=== PATIENT | female | born 1980 | race Caucasian/White ===

== ENCOUNTER 2017-01-09 01:37 | Emergency (ER) | payer BC ==
[~2017-01-09] VITALS: Ht 170.2 cm; Wt 97.5 kg
[~2017-01-09 01:37] MED LIST: ESCT10T
[2017-01-09] MEDS ORDERED: ONDANSETRON 4 MG/2 ML (SDV) Z0FRAN IVP ONE (02:00)
[2017-01-09] MEDS ORDERED: NS IV 1000 ML 1,000 ML IV ONE (02:00)
[2017-01-09] MEDS ORDERED: KETOROLAC 30 MG/ML VIAL IVP STA (02:00)
[2017-01-09] MEDS ORDERED: FAMOTIDINE 20MG/2ML IV (PEPCID) IV STA (02:00)
[2017-01-09 02:27] LABS: BILIRUBIN,URINE NEGATIVE (NEGATIVE); KETONES,URINE 2+ (NEGATIVE); LEUKOCYTE ESTERASE ,URINE 3+ (NEGATIVE); NITRITE,URINE POSITIVE (NEGATIVE); PH,URINE 5 (5-9); PROTEIN,URINE 2+ (NEGATIVE); UROBILINOGEN,URINE 1 MG/DL (NORMAL)
[2017-01-09] MEDS ORDERED: diphenhydrAMINE 50 MG/ML INJ (BENADRYL) IV STA (02:31)
[2017-01-09] MEDS ORDERED: PROMETHAZINE INJ 25 MG/ML (PHENERGAN) AMP IVP STA (02:31)
--- NOTE | 2017-01-09 02:40 | ED General ---
General Chief Complaint: Abdominal/GI Problems Stated Complaint: NAUSEA,VOMITING,PRINCE Nursing Triage Note: Pt c/o nausea, diarrhea, and dry heaving since Thursday (01/06). Pt also c/o headache that began on 01/06. Nursing Sepsis Screen: No Definite Risk Source of Information: Patient Exam Limitations: No Limitations History of Present Illness Time Seen by Provider: 02:20 Initial Comments Skin with report of nausea, vomiting and diarrhea as well as headache. Overall this started on 01/06/17. Noted headache came about and then had dry heaving with diarrhea. This is persisted until now. She states she's been unable to keep fluids down. Noted that she may have had a fever last night and did have a fever on arrival here. Denies dysuria. Denies sore throat or runny nose but does have a mild cough. Timing/Duration: 2-3 Days, Getting Worse Severity: Moderate Associated Systoms: Cough Fever/Chills Headaches Nausea/VomitingNo Shortness of Air, No Weakness Allergies and Home Medications Allergies Coded Allergies: No Known Drug Allergies (Verified , 07/21/07) Home Medications No Active Prescriptions or Reported Meds Constitutional: see HPINo chills, fever EENTM: see HPINo nose congestion, No throat pain Respiratory: no symptoms reported Cardiovascular: no symptoms reported Gastrointestinal: see HPI diarrhea nausea vomiting Genitourinary: no symptoms reported : No Musculoskeletal: muscle pain neck pain Skin: no symptoms reported Psychiatric/Neurological: Headache (global)Denies Weakness Hematologic/Lymphatic: No Symptoms Reported All Other Systems Reviewed Negative Unless Noted: Yes Past Zjavwir-Zilihi-Lwxtpx Hx Patient Social History Alcohol Use: Occasionally Uses Recreational Drug Use: No Smoking Status: Never a Smoker Recent Foreign Travel: No Contact w/Someone Who Travel: No Recent Infectious Disease Expo: No Recent Hopitalizations: No Seasonal Allergies Seasonal Allergies: No Surgeries HX Surgeries: No Respiratory Hx Respiratory Disorders: No Cardiovascular Hx Cardiac Disorders: No Neurological Hx Neurological Disorders: No Reproductive System Hx Reproductive Disorders: No Genitourinary Hx Genitourinary Disorders: No Gastrointestinal Hx Gastrointestinal Disorders: No Musculoskeletal Hx Musculoskeletal Disorders: No Endocrine Hx Endocrine Disorders: No HEENT HX ENT Disorders: No Cancer Hx Cancer: No Psychosocial Hx Psychiatric Problems: No Integumentary HX Skin/Integumentary Disorder: No Blood Transfusions Hx Blood Disorders: No Reviewed Nursing Assessment Reviewed/Agree w Nursing PMH: Yes Family Medical History Significant Family History: No Pertinent Family Hx Physical Exam Vital Signs Vital Sign - Last 12Hours 01/09/17 01:53 Temp 100.8 Pulse 74 Resp 18 B/P 121/83 Pulse Ox 98 O2 Delivery Room Air Capillary Refill : Less Than 3 Seconds General Appearance: No Apparent Distress WD/WN HEENT: PERRL/EOMI Pharynx Normal Neck: Non Tender Supple Respiratory: Lungs Clear Normal Breath Sounds Cardiovascular: Regular Rate, Rhythm No Murmur Gastrointestinal: Non Tender Soft Back: Normal Inspection No Vertebral Tenderness Extremity: Non Tender No Calf Tenderness Neurologic/Psychiatric: Alert Oriented x3 No Motor/Sensory Deficits Skin: Normal Color Warm/Dry Progress/Results/Core Measures Results/Orders Lab Results Laboratory Tests Test 01/09/17 02:17 01/09/17 02:33 01/09/17 03:00 Range/Units Urine Bacteria LARGE H /HPF Urine Bilirubin NEGATIVE NEGATIVE Urine Casts NONE /LPF Urine Clarity SLIGHTLY CLOUDY Urine Color PILAR H Urine Crystals NONE /LPF Urine Culture Indicated YES Urine Glucose (UA) NEGATIVE NEGATIVE Urine Ketones 2+ H NEGATIVE Urine Leukocyte Esterase 3+ H NEGATIVE Urine Mucus LARGE H /LPF Urine Nitrite POSITIVE H NEGATIVE Urine Protein 2+ H NEGATIVE Urine RBC 10-25 H /HPF Urine RBC (Auto) 1+ H NEGATIVE Urine Specific [place] 1.025 H 1.016-1.022 Urine Squamous Epithelial Cells 25-50 H /HPF Urine Urobilinogen 1 NORMAL MG/DL Urine WBC 25-50 H /HPF Urine pH 5 5-9 Alanine Aminotransferase (ALT/SGPT) 15 0-55 U/L Albumin 4.1 3.2-4.5 G/DL Alkaline Phosphatase 67 40-136 U/L Anion Gap 11 5-14 MMOL/L Aspartate Amino Transf (AST/SGOT) 12 5-34 U/L BUN/Creatinine Ratio 13 Basophils # (Auto) 0.0 0.0-0.1 10^3/uL Basophils (%) (Auto) 0 0-10 % Blood Urea Nitrogen 11 7-18 MG/DL C-Reactive Protein High Sensitivity 0.71 H 0.00-0.50 MG/DL Calcium Level 9.1 8.5-10.1 MG/DL Carbon Dioxide Level 19 L 21-32 MMOL/L Chloride Level 107 98-107 MMOL/L Creatinine 0.85 0.60-1.30 MG/DL Eosinophils # (Auto) 0.0 0.0-0.3 10^3/uL Eosinophils (%) (Auto) 1 0-10 % Estimat Glomerular Filtration Rate > 60 Glucose Level 100 70-105 MG/DL Hematocrit 43 35-52 % Hemoglobin 14.8 11.5-16.0 G/DL Lipase 19 8-78 U/L Lymphocytes # (Auto) 1.4 1.0-4.0 X 10^3 Lymphocytes (%) (Auto) 20 12-44 % Magnesium Level 2.6 H 1.8-2.4 MG/DL Mean Corpuscular Hemoglobin 30 25-34 PG Mean Corpuscular Hemoglobin Concent 34 32-36 G/DL Mean Corpuscular Volume 88 80-99 FL Mean Platelet Volume 10.0 7.4-10.4 FL Monocytes # (Auto) 0.5 0.0-1.0 X 10^3 Monocytes (%) (Auto) 8 0-12 % Neutrophils # (Auto) 5.2 1.8-7.8 X 10^3 Neutrophils (%) (Auto) 72 42-75 % Platelet Count 199 130-400 10^3/uL Potassium Level 4.1 3.6-5.0 MMOL/L Red Blood Count 4.92 4.35-5.85 10^6/uL Red Cell Distribution Width 13.3 10.0-14.5 % Sodium Level 137 135-145 MMOL/L Total Bilirubin 0.5 0.1-1.0 MG/DL Total Protein 7.3 6.4-8.2 G/DL White Blood Count 7.2 4.3-11.0 10^3/uL Lactic Acid Level 1.2 0.5-2.0 MMOL/L Micro Results Microbiology 01/09/17 Influenza Types A,B Antigen (ARNULFO) - Final, Complete My Orders Orders-RAJEEV LINDSEY MD Cbc With Automated Diff (01/09/17 02:00) Comprehensive Metabolic Panel (01/09/17 02:00) Lipase (01/09/17 02:00) Magnesium (01/09/17 02:00) Ua Culture If Indicated (01/09/17 02:00) Saline Lock/Iv-Start (01/09/17 02:00) Ns Iv 1000 Ml (Sodium Chloride 0.9%) (01/09/17 02:00) Ketorolac Injection (Toradol Injection) (01/09/17 02:00) Ondansetron Injection (Zofran Injectio (01/09/17 02:00) Famotidine Injection (Pepcid Injection) (01/09/17 02:00) Urine Bedside (01/09/17 02:00) Promethazine Injection (Phenergan Injec (01/09/17 02:31) Diphenhydramine Injection (Benadryl Inje (01/09/17 02:31) Hs C Reactive Protein (01/09/17 02:32) Influenza A And B Antigens (01/09/17 02:32) Urine Culture (01/09/17 02:17) Blood Culture (01/09/17 02:53) Lactic Acid Analyzer (01/09/17 02:53) Ceftriaxone Injection (Rocephin Injectio (01/09/17 03:00) Hydrocodone/Apap 7.5/325 Tab (Lortab 7. (01/09/17 03:54) Medications Given in ED Current Medications Medications Dose Ordered Sig/Gabrielle Route Start Time Stop Time Status Last Admin Dose Admin Ceftriaxone Sodium/Sodium Chloride 50 ml @ 100 mls/hr ONCE ONCE IV 01/09/17 03:00 01/09/17 03:29 DC 01/09/17 03:17 100 MLS/HR Sodium Chloride 1,000 ml @ 0 mls/hr Q0M ONCE IV 01/09/17 02:00 01/09/17 02:03 DC 01/09/17 02:34 999 MLS/HR Vital Signs/I&O Vital Sign - Last 12Hours 01/09/17 01:53 Temp 100.8 Pulse 74 Resp 18 B/P 121/83 Pulse Ox 98 O2 Delivery Room Air Blood Pressure Mean: 96 Point of Care Testing Urine -Bedside: Negative Progress Note : Progress Note Seen and evaluated. IV, labs and UA ordered. UCG ordered. Normal saline 1 L bolus. Phenergan 25 mg IV, Toradol 30 mg IV, Benadryl 25 mg IV and Pepcid 20 mg IV ordered. Monitor patient. 0400: Improved overall but still has a little bit of a headache. She did receive Rocephin 1 g IV after blood cultures and lactic acid due to UTI findings. Hydrocodone 7.5 mg by mouth given. 0425: Pain improved. Tolerated meds okay. She does have urinary tract infection but the rest of the labs look right and lactic acid is not elevated. We will treat this as outpatient with oral antibiotics. Patient agrees. Discharged home with return precautions. Patient verbalize understanding instructions and agreement with plan. Departure Impression Impression: Primary Impression: Urinary tract infection Qualified Code: N30.00 - Acute cystitis without hematuria Additional Impression: Diarrhea Qualified Code: R19.7 - Diarrhea, unspecified Disposition: HOME, SELF-CARE Condition: Improved Departure-Patient Inst. Decision time for Depature: 04:25 Referrals: ROGER MENDOZA MD (PCP/Family) Primary Care Physician Patient Instructions: Urinary Tract Infection, Adult (DC), Diarrhea in Adolescents and Adults Add. Discharge Instructions: All discharge instructions reviewed with patient and/or family. Voiced understanding. Clear liquid diet for the next 24 hours and then advance as tolerated. Take small sips frequently. You may take ibuprofen 800 mg every 8 hours as needed for pain. Take other medications as prescribed. Follow-up with your Dr. in a few days for recheck. Return for worse pain, fever, vomiting, weakness, breathing problems or other concerns as needed. Scripts Hydrocodone/Acetaminophen (Hydrocodon-Acetaminoph 7.5-325)1 Each Tablet1 Each PO Q6H #6 TAB Prov:RAJEEV LINDSEY MD 01/09/17 Promethazine HCl (Promethazine Tablet)25 Mg [id number] Mg PO Q8H PRN NAUSEA/ VOMITING #10 TAB Prov:RAJEEV LINDSEY MD 01/09/17 Cephalexin 500 Mg [id number] Mg PO BID #14 TAB Prov:RAJEEV LINDSEY MD 01/09/17 RAJEEV LINDSEY MD Jan 09, 2017 02:40
[2017-01-09 02:49] LABS: BASOPHILS % (AUTO) 0 % (0-10); EOSINOPHILS % (AUTO) 1 % (0-10); LYMPHOCYTES # (AUTO) 1.4 X 10^3 (1.0-4.0); LYMPHOCYTES % (AUTO) 20 % (12-44); MEAN CORPUSCULAR HEMOGLOBIN 30 PG (25-34); MEAN CORPUSCULAR HGB CONC 34 G/DL (32-36); MEAN CORPUSCULAR VOLUME 88 FL (80-99); MONOCYTES # (AUTO) 0.5 X 10^3 (0.0-1.0); MONOCYTES % (AUTO) 8 % (0-12); NEUTROPHILS # (AUTO) 5.2 X 10^3 (1.8-7.8); NEUTROPHILS % (AUTO) 72 % (42-75); PLATELET COUNT 199 10^3/uL (130-400); RED BLOOD COUNT 4.92 10^6/uL (4.35-5.85); RED CELL DISTRIBUTION WIDTH 13.3 % (10.0-14.5); WHITE BLOOD COUNT 7.2 10^3/uL (4.3-11.0)
[2017-01-09 02:51] LABS: SQUAMOUS EPITHELIAL CELL,UR 25-50 /HPF; WBC,URINE 25-50 /HPF
[2017-01-09] MEDS ORDERED: cefTRIAXone INJECTION 1,000 MG in NS (IVPB) 50 ML IV ONE (03:00)
[2017-01-09 03:09] LABS: ALANINE AMINOTRANSFERASE 15 U/L (0-55); ALBUMIN 4.1 G/DL (3.2-4.5); ANION GAP 11 MMOL/L (5-14); ASPARTATE AMINO TRANSFERASE 12 U/L (5-34); BILIRUBIN,TOTAL 0.5 MG/DL (0.1-1.0); BLOOD UREA NITROGEN 11 MG/DL (7-18); BUN/CREATININE RATIO 13; CALCIUM 9.1 MG/DL (8.5-10.1); CARBON DIOXIDE 19 MMOL/L (21-32); CHLORIDE 107 MMOL/L (98-107); CREATININE SERUM 0.85 MG/DL (0.60-1.30); GFR ESTIMATED > 60; GLUCOSE 100 MG/DL (70-105); LIPASE 19 U/L (8-78); MAGNESIUM 2.6 MG/DL (1.8-2.4); POTASSIUM 4.1 MMOL/L (3.6-5.0); SODIUM 137 MMOL/L (135-145); TOTAL PROTEIN 7.3 G/DL (6.4-8.2); hs C REACTIVE PROTEIN 0.71 MG/DL (0.00-0.50)
[2017-01-09] MEDS ORDERED: HYDROcodone/APAP 7.5 MG/325 MG (LORTAB, LORCET PLUS) TABLET PO STA (03:54)
[2017-01-09] MEDS ORDERED: CEPH500T PO (04:28)
[2017-01-09] MEDS ORDERED: PROM25TA14 PO (04:28)
[2017-01-09] MEDS ORDERED: HYDR-3816 PO (04:28)
[2017-01-09 04:44] VITALS: BP 90/52
== END 2017-01-09 04:44 | disposition home or self-care (01) ==
LOC: EDUNIT# 01:37 → ER 01:43
DX: N39.0 Urinary tract infection, site not specified (principal); R19.7 Diarrhea, unspecified; R50.9 Fever, unspecified; R51 Headache
CPT/HCPCS: 36415; 80053; 81000; 83605; 83690; 83735; 84703; 85025; 86141; 87040; 87088; 87804; 96361; 96365; 96367; 96375

== ENCOUNTER 2017-12-26 01:24 | Observation (INO) | payer BC, OTHER ==
[2017-12-26] VITALS (10 sets, daily range): BP systolic 110–143; BP diastolic 63–93
[~2017-12-26] VITALS: Ht 170.2 cm; Wt 110.3 kg
[~2017-12-26 01:24] MED LIST changes: +CEPH500T PO; +HYDR-34 PO; +PROM25TA14 PO
[2017-12-26] MEDS ORDERED: TETANUS,DIPTH,PERTUSS P/F (BOOSTRIX) 0.5 ML VIAL IM STA (01:32)
[2017-12-26] MEDS ORDERED: LACTATED RINGERS 1,000 ML IV ONE (01:32)
[2017-12-26 01:52] LABS: BASOPHILS % (AUTO) 0 % (0-10); EOSINOPHILS # (AUTO) 0.1 10^3/uL (0.0-0.3); EOSINOPHILS % (AUTO) 1 % (0-10); HEMATOCRIT 42 % (35-52); HEMOGLOBIN 14.3 G/DL (11.5-16.0); LYMPHOCYTES # (AUTO) 3.7 X 10^3 (1.0-4.0); LYMPHOCYTES % (AUTO) 45 % (12-44); MEAN CORPUSCULAR HEMOGLOBIN 30 PG (25-34); MEAN CORPUSCULAR HGB CONC 35 G/DL (32-36); MEAN CORPUSCULAR VOLUME 87 FL (80-99); MONOCYTES # (AUTO) 0.5 X 10^3 (0.0-1.0); MONOCYTES % (AUTO) 6 % (0-12); NEUTROPHILS # (AUTO) 3.9 X 10^3 (1.8-7.8); NEUTROPHILS % (AUTO) 48 % (42-75); PLATELET COUNT 245 10^3/uL (130-400); RED CELL DISTRIBUTION WIDTH 13.4 % (10.0-14.5); WHITE BLOOD COUNT 8.2 10^3/uL (4.3-11.0)
[2017-12-26 01:59] LABS: INR 0.8 (0.8-1.4); PROTHROMBIN TIME PATIENT 11.6 SEC (12.2-14.7)
--- NOTE | 2017-12-26 02:03 | ED Fall/Injury ---
General Chief Complaint: Trauma-Non Activation Stated Complaint: HEAD INJURY Nursing Triage Note: laceration to face/forehead. positive loc. Source: patient, spouse History of Present Illness Date Seen by Provider: Dec 26, 2017 Time Seen by Provider: 01:27 Initial Comments PT ARRIVES VIA POV FROM HOME PT WAS WALKING DOWN STEPS TO BASEMENT, AND FELL DOWN "A COUPLE" OF STEPS, HITTING HER HEAD ON UNKNOWN OBJECT--BASEMENT HAS CONCRETE FLOORS. ALSO HAD A PORCELAIN CAT BOWL THAT HAD BEEN BROKEN DURING THE FALL PT STATES SHE DID HAVE LOSS OF CONSCIOUSNESS THE FALL WAS NOT WITNESSED. WAS UPSTAIRS. PT DOES NOT RECALL ALL OF EVENTS C/O SEVERE PAIN TO HEAD--PT HAS A VERY LARGE HORSESHOE-SHAPED LACERATION TO MID AND LEFT FOREHEAD C/O PAIN TO NECK PT IMMEDIATELY PLACED IN CERVICAL COLLAR ON ARRIVAL PT ADMITS TO HAVING "A COUPLE" OF MIXED DRINKS--[employer] AND [employer]-- STATES THEY DRANK "A PINT" TONIGHT. NO VISION CHANGES NO NAUSEA/VOMITING NO PARESTHESIAS OR MOTOR DEFICITS Location Injury Occurred: home Allergies and Home Medications Allergies Coded Allergies: No Known Drug Allergies (Verified , 07/21/07) Home Medications No Active Prescriptions or Reported Meds Constitutional: no symptoms reported Eyes: No Symptoms Reported Ears, Nose, Mouth, Throat: no symptoms reported Respiratory: no symptoms reported Cardiovascular: no symptoms reported Gastrointestinal: no symptoms reported Genitourinary: no symptoms reported Musculoskeletal: see HPI Skin: see HPI Psychiatric/Neurological: See HPI, Anxiety (VERY ANXIOUS, CRYING UNCONTROLLABLY , NEARLY HYSTERICAL), Headache Past Kzhpbvw-Ruoqbe-Vhpiau Hx Patient Social History Alcohol Use: Occasionally Uses Number of Drinks Today: 2 Alcohol Beverage of Choice: Whiskey, Vodka Recreational Drug Use: No Smoking Status: Never a Smoker 2nd Hand Smoke Exposure: No Recent Foreign Travel: No Contact w/Someone Who Travel: No Recent Infectious Disease Expo: No Recent Hopitalizations: No Immunizations Up To Date Tetanus Booster (TDap): Unknown PED Vaccines UTD: Yes Seasonal Allergies Seasonal Allergies: No Surgeries History of Surgeries: No Respiratory History of Respiratory Disorde: No Cardiovascular History of Cardiac Disorders: No Neurological History of Neurological Disord: No Reproductive System : No Last Menstrual Period: Nov 29, 2017 Hx Reproductive Disorders: No Genitourinary History of Genitourinary Disor: No Gastrointestinal History of Gastrointestinal Di: No Musculoskeletal History of Musculoskeletal Dis: No Endocrine History of Endocrine Disorders: No HEENT History of HEENT Disorders: No Cancer History of Cancer: No Psychosocial History of Psychiatric Problem: No Integumentary History of Skin or Integumenta: No Blood Transfusions History of Blood Disorders: No Family Medical History Significant Family History: No Pertinent Family Hx Physical Exam Vital Signs Vital Signs - First Documented 12/26/17 01:25 Temp 97.8 Pulse 108 Resp 18 B/P (MAP) 121/82 (95) Pulse Ox 99 O2 Delivery Room Air Capillary Refill : Less Than 3 Seconds General Appearance: WD/WN, other (NEARLY HYSTERICAL, CRYING/WAILING UNCONTROLLABLY. STRONG ODOR OF ETOH ) HEENT: PERRL/EOMI, other (VERY LARGE HORSESHOE-SHAPED LACERATION TO MID AND LEFT FOREHEAD) Neck: tender lateral, tender midline, other (IMMEDIATELY PLACED IN CERVICAL COLLAR) Cardiovascular: normal peripheral pulses, regular rate, rhythm, no edema, no JVD, no murmur Respiratory: normal breath sounds, no respiratory distress, no accessory muscle use, other (TENDERNESS TO LEFT LOWER ANTERIOR/LATERAL RIB AREA) Gastrointestinal: normal bowel sounds, soft, no organomegaly, no pulsatile mass , tenderness (LUQ AND LEFT MID ABDOMEN, EPIGASTRIC AREA) Back: normal inspection, no CVA tenderness, no vertebral tenderness Extremities: no pedal edema, normal capillary refill, other (LEFT HIP TENDERNESS) Neurologic/Psychiatric: night filler II-XII nml as tested, no motor/sensory deficits, alert, oriented x 3 Skin: normal color, warm/dry, other (LACERATION NOTED ABOVE) Alexis Coma Score Best Eye Response: (4) Open Spontaneously Best Verbal Response: (5) Oriented Best Motor Response: (6) Obeys Commands Alexis Total: 15 Laceration Repair : Wound Location: Face Wound Length (cm): 15 Wound's Depth, Shape: flap (HORSE-SHOE SHAPED FLAP), sub Q Wound Explored: foreign body removed (PIECES OF PORCELAIN AND HAIR) Irrigated w/ Saline (ccs): 500 Betadine Prep?: No (BETASEPT) Anesthesia: Lidocaine w/ Epi (2%) Staple Repair: Stapler 35W Suture: Ethlion Suture Size: 5-0 Sterile Dressing Applied?: Yes Progress FOREHEAD REPAIRED WITH #13 SUTURES OF 5-0 ETHILON PART OF WOUND THAT WAS JUST INSIDE HAIRLINE WAS REPAIRED WITH #17 KAYLA Progress/Results/Core Measures Results/Orders Lab Results Laboratory Tests Test 12/26/17 01:40 Range/Units White Blood Count 8.2 4.3-11.0 10^3/uL Red Blood Count 4.80 4.35-5.85 10^6/uL Hemoglobin 14.3 11.5-16.0 G/DL Hematocrit 42 35-52 % Mean Corpuscular Volume 87 80-99 FL Mean Corpuscular Hemoglobin 30 25-34 PG Mean Corpuscular Hemoglobin Concent 35 32-36 G/DL Red Cell Distribution Width 13.4 10.0-14.5 % Platelet Count 245 130-400 10^3/uL Mean Platelet Volume 10.0 7.4-10.4 FL Neutrophils (%) (Auto) 48 42-75 % Lymphocytes (%) (Auto) 45 H 12-44 % Monocytes (%) (Auto) 6 0-12 % Eosinophils (%) (Auto) 1 0-10 % Basophils (%) (Auto) 0 0-10 % Neutrophils # (Auto) 3.9 1.8-7.8 X 10^3 Lymphocytes # (Auto) 3.7 1.0-4.0 X 10^3 Monocytes # (Auto) 0.5 0.0-1.0 X 10^3 Eosinophils # (Auto) 0.1 0.0-0.3 10^3/uL Basophils # (Auto) 0.0 0.0-0.1 10^3/uL Prothrombin Time 11.6 L 12.2-14.7 SEC INR Comment 0.8 0.8-1.4 Activated Partial Thromboplast Time 26 24-35 SEC Sodium Level 143 135-145 MMOL/L Potassium Level 3.8 3.6-5.0 MMOL/L Chloride Level 109 H 98-107 MMOL/L Carbon Dioxide Level 19 L 21-32 MMOL/L Anion Gap 15 H 5-14 MMOL/L Blood Urea Nitrogen 14 7-18 MG/DL Creatinine 0.85 0.60-1.30 MG/DL Estimat Glomerular Filtration Rate > 60 BUN/Creatinine Ratio 16 Glucose Level 129 H 70-105 MG/DL Calcium Level 9.2 8.5-10.1 MG/DL Total Bilirubin 0.2 0.1-1.0 MG/DL Aspartate Amino Transf (AST/SGOT) 15 5-34 U/L Alanine Aminotransferase (ALT/SGPT) 18 0-55 U/L Alkaline Phosphatase 77 40-136 U/L Total Protein 8.0 6.4-8.2 GM/DL Albumin 4.4 3.2-4.5 GM/DL Amylase Level 39 25-125 U/L Lipase 26 8-78 U/L Serum Test, Qualitative NEGATIVE NEGATIVE Serum Alcohol 302 *H <10 MG/DL My Orders Orders - LUKAS COLBERT DO Saline Lock/Iv-Start (12/26/17:32) Monitor-Rhythm Ecg Trace Only (12/26/17:32) Ct Head/Face/Cervical Wo (12/26/17:32) Ct Thoracic/Lumbar Spine Wo (12/26/17:32) Alcohol (12/26/17:32) Amylase (12/26/17:32) Cbc With Automated Diff (12/26/17:32) Comprehensive Metabolic Panel (12/26/17:32) Drug Screen Stat (Urine) (12/26/17:32) Lipase (12/26/17:32) Protime With Inr (12/26/17:32) Partial Thromboplastin Time (12/26/17:32) Ua Culture If Indicated (12/26/17:32) Chest 1 View, Ap/Pa Only (12/26/17:32) Pelvis/Wallace Hips 5> Views (12/26/17:32) Saline Lock/Iv-Start (12/26/17:32) Lactated Ringers (Lr 1000 Ml Iv Solution (12/26/17 01:32) Hcg,Qualitative Serum (12/26/17:32) Dipht,Pertuss(Acell),Tet Adult (Boostrix (12/26/17 01:32) Ct Abdomen/Pelvis W (12/26/17 ) Lidocaine/Epi 2% 1:100,000 (Xylocaine/Ep (12/26/17 03:05) Lactated Ringers (Lr 1000 Ml Iv Solution (12/26/17 03:53) Medications Given in ED Current Medications Medications Dose Ordered Sig/Gabrielle Route Start Time Stop Time Status Last Admin Dose Admin Lactated Ringer's 1,000 ml @ 0 mls/hr Q0M ONCE IV 12/26/17 01:32 12/26/17 01:36 DC 12/26/17 02:32 0 MLS/HR Lidocaine/ Epinephrine 20 ml STK-MED ONCE .ROUTE 12/26/17 03:05 12/26/17 03:07 DC 12/26/17 03:21 20 ML Vital Signs/I&O Vital Sign - Last 12Hours 12/26/17 01:25 Temp 97.8 Pulse 108 Resp 18 B/P (MAP) 121/82 (95) Pulse Ox 99 O2 Delivery Room Air Blood Pressure Mean: 95 Progress Note : Progress Note PT WITH IMPROVED MENTATION, CALMER, APPEARS LESS INTOXICATED PRIOR TO ADMIT. NO COMPLAINTS OF NECK PAIN AT THIS TIME Diagnostic Imaging Comments CT THORACIC AND LUMBAR SPINE--NO ACUTE PROCESS, PER [facility] VIA FAX @ 0247 CT HEAD/MAXILLOFACIALS/CERVICAL SPINE--LEFT FRONTAL SCALP LACERATION WITH RADIODENSITY-POSSIBLE RETAINED FOREIGN BODY, NO ACUTE PROCESS--PER [facility] VIA FAX @ 0408 CT ABDOMEN/PELVIS--NO ACUTE PROCESS--PER [facility] VIA FAX @ 0408 Reviewed: Reviewed by Me Departure Communication (Admissions) Time/Spoke to Admitting Phy: 04:[address] 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 Referrals: ROGER MENDOZA MD (PCP/Family) Primary Care Physician Scripts No Active Prescriptions or Reported Meds LUKAS COLBERT DO Dec 26, 2017 02:02
[2017-12-26 02:10] LABS: ALANINE AMINOTRANSFERASE 18 U/L (0-55); ALBUMIN 4.4 GM/DL (3.2-4.5); ALKALINE PHOSPHATASE 77 U/L (40-136); AMYLASE 39 U/L (25-125); BILIRUBIN,TOTAL 0.2 MG/DL (0.1-1.0); BUN/CREATININE RATIO 16; CALCIUM 9.2 MG/DL (8.5-10.1); CARBON DIOXIDE 19 MMOL/L (21-32); CHLORIDE 109 MMOL/L (98-107); CREATININE SERUM 0.85 MG/DL (0.60-1.30); GFR ESTIMATED > 60; GLUCOSE 129 MG/DL (70-105); LIPASE 26 U/L (8-78); POTASSIUM 3.8 MMOL/L (3.6-5.0); SODIUM 143 MMOL/L (135-145)
[2017-12-26] MEDS ORDERED: LIDOCAINE/EPI 2% 1:100,00 (XYLOCAINE) 20 ML VIAL ONE (03:05)
[2017-12-26] MEDS ORDERED: LACTATED RINGERS 1,000 ML IV STA (03:53)
[2017-12-26 04:36] LABS: BILIRUBIN,URINE NEGATIVE (NEGATIVE); CLARITY,URINE CLEAR; COLOR,URINE YELLOW; GLUCOSE, URINE (UA) NEGATIVE (NEGATIVE); KETONES,URINE NEGATIVE (NEGATIVE); LEUKOCYTE ESTERASE ,URINE 1+ (NEGATIVE); NITRITE,URINE NEGATIVE (NEGATIVE); PH,URINE 6.5 (5-9); PROTEIN,URINE NEGATIVE (NEGATIVE); UROBILINOGEN,URINE NORMAL (NORMAL)
[2017-12-26 04:42] LABS: BACTERIA,URINE NEGATIVE /HPF; SQUAMOUS EPITHELIAL CELL,UR 0-2 /HPF; WBC,URINE RARE /HPF
[2017-12-26 04:50] LABS: AMPHETAMINE SCREEN, URINE NEGATIVE (NEGATIVE); BARBITURATE SCREEN URINE NEGATIVE (NEGATIVE); BENZODIAZEPINES SCREEN URINE NEGATIVE (NEGATIVE); CANNABINOID SCREEN, URINE NEGATIVE (NEGATIVE); COCAINE SCREEN URINE NEGATIVE (NEGATIVE); METHADONE STAT NEGATIVE (NEGATIVE); METHAMPHETAMINE SCREEN URINE S NEGATIVE (NEGATIVE); OPIATE SCREEN URINE NEGATIVE (NEGATIVE); OXYCODONE STAT NEGATIVE (NEGATIVE); TRICYCLIC ANTIDEPRESSANTS SCRE NEGATIVE (NEGATIVE)
[2017-12-26 04:51] LABS: PROPOXYPHENE STAT NEGATIVE (NEGATIVE)
[2017-12-26] MEDS ORDERED: ACETAMINOPHEN 500 MG TAB (TYLENOL) PO PRN (05:45)
[2017-12-26] MEDS ORDERED: D5 1/2 NS 1000 ML IV SOLUTION 1,000 ML IV SCH (05:45)
--- NOTE | 2017-12-26 06:26 | Diagnostic Imaging Report ---
CT thoracic and lumbar spine without contrast. INDICATION: Fall. FINDINGS: Alignment of the thoracic and lumbar spine appears normal. The facets are normally aligned. The vertebral body heights are maintained without evidence to suggest an acute thoracic or lumbar fracture. There is a fusion anomaly demonstrated at T2-T3. Vacuum disc and endplate changes are most significant at the L4-L5 and L5-S1 level where there is also advanced facet arthropathy. No posterior rib fracture is demonstrated. The visualized portion of the abdomen and pelvis demonstrate no hemoperitoneum or free fluid. The lungs demonstrate a few scattered basilar pulmonary micronodules. There is a calcified subcarinal lymph node. There is no evidence of high-grade thoracic or lumbar canal stenosis. There does, however, appear to be severe bilateral neural foraminal stenosis at the L5-S1 level. IMPRESSION: 1. Normal height and alignment of the thoracic and lumbar spine without evidence of an acute fracture. 2. Lower lumbar degenerative disc disease and facet arthropathy with severe bilateral neural foraminal stenosis at L5-S1. 3. Segmentation anomaly is demonstrated at the T2-T3 level. Dictated by: Dictated on workstation # [id number]
--- NOTE | 2017-12-26 06:47 | Diagnostic Imaging Report ---
PROCEDURE: CT head, face, and cervical spine without contrast. TECHNIQUE: Multiple contiguous axial images were obtained through the head, neck, and facial bones without the use of intravenous contrast. Sagittal and coronal reformations through the cervical spine and facial bones were also performed. INDICATION: Fall downstairs. No comparison is available. FINDINGS: There is no CT evidence of acute intracranial hemorrhage. There is no evidence of an abnormal extra-axial fluid collection. There is no mass effect or shift. There is no hydrocephalus. Basilar cisterns patent. Zhao-white differentiation appears maintained. CT of the face demonstrates no evidence of a fracture of the bony orbit. The intraorbital contents appear unremarkable. There is no evidence of a fracture of the maxilla. There is no nasal bone fracture. Zygomatic arches appear appropriate. There is no fracture demonstrated of the pterygoids. Temporomandibular joints are located. There is no mandibular fracture. There is no air-fluid level present within the paranasal sinuses. Mastoid air cells appear clear. There is no central skull base fracture. Cervical spine demonstrates straightening of the cervical lordosis. There is a normal relationship of the craniocervical junction. There is a normal relationship of lateral masses of C1 and C2. The facets are normally aligned. There is no abnormal facet joint or disc space widening. Vertebral body heights are well-maintained. There is no abnormal prevertebral soft tissue thickening. There is no acute cervical spine fracture demonstrated. There is no evidence of significant canal stenosis. IMPRESSION: 1. No CT evidence of an acute intracranial abnormality. 2. No CT evidence of acute facial fracture. Orbital contents unremarkable. There is no blood evident within the sinuses. 3. No CT evidence of acute cervical spine fracture or traumatic malalignment. Dictated by: Dictated on workstation # [id number]
[2017-12-26] MEDS ORDERED: TRIM/SULFAMETH 160/800 (SEPTRA DS) TAB PO SCH (07:00)
--- NOTE | 2017-12-26 07:10 | Diagnostic Imaging Report ---
INDICATION: Fall. FINDINGS: There is no evidence of hip dislocation. There is no diastasis of the pubic symphysis or of the SI joints. There is contrast within the urinary bladder from the recent CT. There is no proximal femoral fracture. IMPRESSION: 1. No evidence of pelvic or proximal femoral fracture or dislocation. Dictated by: Dictated on workstation # [id number]
--- NOTE | 2017-12-26 07:12 | Diagnostic Imaging Report ---
INDICATION: Fall. FINDINGS: The lungs demonstrate no focal infiltrate. There is no effusion. There is no pneumothorax. Heart size and mediastinal contours are appropriate. Pulmonary vascularity appears within normal limits. There is no acute osseous abnormality. IMPRESSION: 1. No radiographic evidence of an acute cardiopulmonary process. No fracture is evident. Dictated by: Dictated on workstation # [id number]
--- NOTE | 2017-12-26 07:17 | Diagnostic Imaging Report ---
PROCEDURE: CT abdomen and pelvis with contrast. TECHNIQUE: Multiple contiguous axial images were obtained through the abdomen and pelvis after administration of intravenous contrast. INDICATION: Fall. FINDINGS: The visualized lung bases demonstrate some small noncalcified micronodules. There is no focal infiltrate or evidence of a pleural effusion. The liver demonstrates no focal intrahepatic abnormality. The gallbladder is nondistended. There is no biliary dilatation. There is no radiodense gallstone. Spleen is also normal. There is no perihepatic or perisplenic fluid or evidence of laceration. There is no adrenal hematoma. The pancreas is unremarkable. The kidneys appear nonobstructed and enhance normally. Small and large bowel are normal in caliber without evidence of obstruction. There is no abnormal bowel thickening. The appendix is normal. There is no free air, free fluid or hematoma or focal inflammatory stranding within the omentum or mesentery. The urinary bladder, uterus and adnexa unremarkable. There are no pathologically enlarged lymph nodes. The aorta is unremarkable. Alignment of the lumbar spine is normal. The vertebral body heights are maintained. Facet alignment is normal. There is no pars defect. There is no evidence of an acute lumbar fracture. There is loss of disc space height and facet arthropathy at the L5-S1 level. There is no pelvic fracture or evidence of hip dislocation. IMPRESSION: 1. No CT evidence of an acute traumatic injury within the abdomen or pelvis. There is no solid organ laceration or evidence of free fluid or hemoperitoneum. 2. No acute inflammatory or obstructive process demonstrated. 3. Small noncalcified basilar pulmonary micronodules. These are all less than 4 mm. Consider followup if appropriate risk factors. Dictated by: Dictated on workstation # [id number]
[2017-12-26] MEDS ORDERED: MUPIROCIN 2% OINT 22 GM (BACTROBAN) TUBE TOP SCH (09:00)
[2017-12-26] MEDS ORDERED: INFLUENZA TRIvalent 2017-2018 0.5 ML/45 MCG SYR IM ONE (10:45)
[2017-12-26] MEDS ORDERED: HYDROcodone/APAP 5 MG/325 MG (LORTAB) TAB PO NR (11:30)
[2017-12-26] MEDS ORDERED: ONDANSETRON 4 MG/2 ML (SDV) Z0FRAN IVP NR (11:45)
[2017-12-26] MEDS ORDERED: ACHD5005 PO (12:04)
--- NOTE | 2017-12-26 12:05 | Discharge Inst-Simple/Standard ---
Discharge Inst-Standard Discharge Medications New, Converted or Re-Newed RX: RX on Chart Patient Instructions/Follow Up Plan of Care/Instructions/FU: F/U with me in 10 days for removal of fantasma Activity as Tolerated: Yes Discharge Diet: No Restrictions KENZIE VALLE MD Dec 26, 2017 12:05 pm
--- NOTE | 2017-12-26 12:39 | History & Physicial ---
History of Present Illness History of Present Illness Reason for visit/HPI fall at home due to acute INTOXICATION, sustaining a scalp laceration Date of Admission Dec 26, 2017 at 4:10 am Date Seen by Provider: Dec 26, 2017 Time Seen by Provider: 10:10 I consulted on this patient on 12/26/17 12:36 Attending Physician Kenzie Valle MD Admitting Physician Win Nowak MD Consult Allergies and Home Medications Allergies Coded Allergies: No Known Drug Allergies (Verified , 07/21/07) Home Medications Hydrocodone Bit/Acetaminophen 1 Tab Tab, 1-2 TAB PO 4-6HR PRN for PAIN, #30 Ref 0 Prescribed by: KENZIE VALLE on 12/26/17 1204 Past Inkagbm-Zivsze-Bcqdhq Hx Patient Social History Marrital Status: Employed/Student: employed Alcohol Use: Occasionally Uses Number of Drinks Today: 2 Alcohol Beverage of Choice: Whiskey, Vodka Recreational Drug Use: No Smoking Status: Light Tobacco Smoker Type Used: Cigarettes 2nd Hand Smoke Exposure: No Physical Abuse Screen: No Sexual Abuse: No Recent Foreign Travel: No Contact w/other who traveled: No Recent Hopitalizations: No Recent Infectious Disease Expo: No Immunizations Up To Date Tetanus Booster (TDap): Unknown Pediatric: Yes Seasonal Allergies Seasonal Allergies: No Surgeries No Respiratory No Cardiovascular No Neurological No Reproductive System : No Last Menstrual Period: Nov 29, 2017 Hx Reproductive Disorders: No Genitourinary No Gastrointestinal No Musculoskeletal No Endocrine History of Endocrine Disorders: No HEENT History of HEENT Disorders: No Cancer No Psychosocial History of Psychiatric Problem: No Integumentary History of Skin or Integumenta: No Blood Transfusions History of Blood Disorders: No Family Medical History Significant Family History: No Pertinent Family Hx Family Hx: Patient reports no known family medical history. Constitutional: no symptoms reported EENTM: see HPI Respiratory: no symptoms reported Cardiovascular: no symptoms reported Gastrointestinal: no symptoms reported Genitourinary: no symptoms reported Musculoskeletal: see HPI Skin: see HPI Psychiatric/Neurological: No Symptoms Reported Physical Exam Vital Signs Vital Signs - First Documented 12/26/17 01:25 Temp 97.8 Pulse 108 Resp 18 B/P (MAP) 121/82 (95) Pulse Ox 99 O2 Delivery Room Air Capillary Refill : Less Than 3 Seconds General Appearance: No Apparent Distress HEENT: Normal ENT Inspection Neck: Normal Inspection Respiratory: Lungs Clear Cardiovascular: Regular Rate, Rhythm Gastrointestinal: Non Tender, Soft Back: Normal Inspection Extremity: Normal Inspection Neurologic/Psychiatric: Alert, Oriented x3 Skin: Warm/Dry Comments semilunar laceration over the anterior aspect of the scalp, that has been stapled by the emergency room doctor. Minimal edema around it. CT scans of the brain, cervical spine, thoracolumbar spine, chest and abdomen are negative. Assessment/Plan Assessment and Plan lady with a scalp laceration resulting from a fall sustained, while intoxicated. Alcohol level 302. Negative CT evaluation. Could be discharged home. Problems: Clinical Quality Measures DVT/VTE Risk/Contraindication: Risk Factor Score Per Nursin RFS Level Per Nursing on Admit: 1=Low/No VTE PPX KENZIE VALLE MD Dec 26, 2017 12:39 pm
== END 2017-12-26 12:04 | disposition home or self-care (01) ==
LOC: EDUNIT# 01:24 → ER 01:26 → ICU 04:10 → UNDOADMOB 04:10 → ICU 05:05 → UNDODISOB 13:23
PROVIDERS: ADMIT Surgery; ATTEND Surgery
DX: S01.01XA Laceration without foreign body of scalp, initial encounter (principal); S70.02XA Contusion of left hip, initial encounter; W10.9XXA Fall (on) (from) unspecified stairs and steps, initial encounter; F10.129 Alcohol abuse with intoxication, unspecified; Y90.8 Blood alcohol level of 240 mg/100 ml or more; Y92.018 Other place in single-family (private) house as the place of occurrence of the external cause; Z11.2 Encounter for screening for other bacterial diseases; Z23 Encounter for immunization
CPT/HCPCS: 12035; 36415; 70450; 70486; 71045; 72125; 72128; 72131; 73523; 74177; 80053; 80306; 80320; 81000; 82150; 83690; 84703; 85025; 85610; 85730; 87081; 90471; 90715; 93041; 96360; 96361

== ENCOUNTER 2022-11-01 07:41 | Emergency (ER) | payer BC ==
[~2022-11-01] VITALS: Ht 170.1 cm; Wt 108.9 kg
[~2022-11-01 07:41] MED LIST changes: +ACHD5005 PO
[2022-11-01] MEDS ORDERED: ENOXAPARIN 60 MG/0.6 ML (LOVENOX) SYR SC ONE (08:00)
--- NOTE | 2022-11-01 08:06 | ED Upper Extremity ---
General Chief Complaint: Upper Extremity Stated Complaint: RIGHT ARM TIGHT/SWOLLEN Source: patient Exam Limitations: no limitations History of Present Illness Date Seen by Provider: Nov 01, 2022 Time Seen by Provider: 07:43 Initial Comments 42-year-old female that is [id number] with no pertinent past medical history coming in due to right arm swelling and pain. Woke up around 7 AM, around 715 she noticed some immediate and rapid swelling of her right upper extremity with bruising. This is never occurred before. Denies any trauma such as falling. Denies any prior history of DVT or PE. Does have some mild dyspnea this morning, but she feels like that is related to her having a panic attack. Has not ever had surgery, does not take any hormones such as control, no recent long travel. Does not do any work with repetitive motion with arms above her head. Otherwise denying any chest pain, abdominal pain, nausea, vomiting, diarrhea, fever, chills, focal weakness or numbness, headache, vision changes, or any other concerns. Allergies and Home Medications Allergies Coded Allergies: No Known Drug Allergies (Verified , 07/21/07) Patient Home Medication List Home Medication List Reviewed: Yes Hydrocodone Bit/Acetaminophen (Lortab 5 Mg Tablet) 1 Tab Tab, 1-2 TAB PO 4-6HR PRN for PAIN Prescribed by: KENZIE VALLE on 12/26/17 1204 Review of Systems Constitutional: No fever EENTM: no symptoms reported Respiratory: no symptoms reported Cardiovascular: no symptoms reported Gastrointestinal: no symptoms reported Genitourinary: no symptoms reported Musculoskeletal: see HPI Skin: no symptoms reported Psychiatric/Neurological: No Symptoms Reported All Other Systems Reviewed Negative Unless Noted: Yes Past Lruydom-Wkgwyx-Vengdi Hx Patient Social History Tobacco Use?: Yes Substance use?: No Alcohol Use?: Yes Alcohol Frequency: Several times a month Immunizations Up To Date Tetanus Booster (TDap): Unknown PED Vaccines UTD: Yes Seasonal Allergies Seasonal Allergies: No Past Medical History Surgeries: No Respiratory: No Cardiac: No Neurological: No Reproductive Disorders: No Genitourinary: No Gastrointestinal: No Musculoskeletal: No Endocrine: No HEENT: No Cancer: No Psychosocial: No Integumentary: No Blood Disorders: No Family Medical History Patient reports no known family medical history. No Pertinent Family Hx Physical Exam Vital Signs Vital Signs - First Documented 11/01/22 07:45 Temp 36.2 Pulse 121 Resp 20 B/P (MAP) 150/127 (135) Pulse Ox 100 O2 Delivery Room Air Capillary Refill : Height, Weight, BMI Height: 5'7.00" Weight: 243lbs. 2.0oz. 110.648688xl; 38.1 BMI Method:Stated General Appearance: WD/WN, mild distress HEENT: PERRL/EOMI, normal ENT inspection, pharynx normal Neck: non-tender, full range of motion, supple, normal inspection Cardiovascular: regular rate, rhythm, no edema, no murmur Respiratory: chest non-tender, lungs clear, normal breath sounds, no respiratory distress, no accessory muscle use Gastrointestinal: normal bowel sounds, non tender, soft; No distended, No guarding, No rebound Back: normal inspection, no CVA tenderness Shoulder: swelling (Swelling and what appears like some early bruising to the right shoulder going down the right upper extremity, both hands feel cold bilaterally) Wrist: Yes swelling (Radial and ulnar pulses found by Doppler) Neurologic/Tendon: normal sensation, normal motor functions, normal tendon functions Neurologic/Psychiatric: no motor/sensory deficits, alert, normal mood/affect Skin: warm/dry, other (Right upper extremity has a bluish hue compared to the left) Lymphatic: no adenopathy Procedures/Interventions Suture Size: 5-0 Progress/Results/Core Measures Results/Orders Lab Results Laboratory Tests Test 11/01/22 08:12 Range/Units White Blood Count 7.0 4.3-11.0 10^3/uL Red Blood Count 4.75 3.80-5.11 10^6/uL Hemoglobin 14.0 11.5-16.0 g/dL Hematocrit 42 35-52 % Mean Corpuscular Volume 88 80-99 fL Mean Corpuscular Hemoglobin 30 25-34 pg Mean Corpuscular Hemoglobin Concent 34 32-36 g/dL Red Cell Distribution Width 13.3 10.0-14.5 % Platelet Count 271 130-400 10^3/uL Mean Platelet Volume 9.6 9.0-12.2 fL Immature Granulocyte % (Auto) 0 % Neutrophils (%) (Auto) 59 42-75 % Lymphocytes (%) (Auto) 33 12-44 % Monocytes (%) (Auto) 6 0-12 % Eosinophils (%) (Auto) 2 0-10 % Basophils (%) (Auto) 0 0-10 % Neutrophils # (Auto) 4.1 1.8-7.8 10^3/uL Lymphocytes # (Auto) 2.3 1.0-4.0 10^3/uL Monocytes # (Auto) 0.4 0.0-1.0 10^3/uL Eosinophils # (Auto) 0.1 0.0-0.3 10^3/uL Basophils # (Auto) 0.0 0.0-0.1 10^3/uL Immature Granulocyte # (Auto) 0.0 0.0-0.1 10^3/uL Prothrombin Time 11.9 L 12.2-14.7 SEC INR Comment 0.8 0.8-1.4 Activated Partial Thromboplast Time 26 24-35 SEC D-Dimer 0.94 H 0.00-0.49 UG/ML Sodium Level 137 135-145 MMOL/L Potassium Level 3.8 3.6-5.0 MMOL/L Chloride Level 105 98-107 MMOL/L Carbon Dioxide Level 20 L 21-32 MMOL/L Anion Gap 12 5-14 MMOL/L Blood Urea Nitrogen 18 7-18 MG/DL Creatinine 0.97 0.60-1.30 MG/DL Estimat Glomerular Filtration Rate 76 BUN/Creatinine Ratio 19 Glucose Level 109 H 70-105 MG/DL Calcium Level 9.3 8.5-10.1 MG/DL Corrected Calcium 9.1 8.5-10.1 MG/DL Magnesium Level 2.0 1.6-2.4 MG/DL Total Bilirubin 0.4 0.1-1.0 MG/DL Aspartate Amino Transf (AST/SGOT) 13 5-34 U/L Alanine Aminotransferase (ALT/SGPT) 21 0-55 U/L Alkaline Phosphatase 92 40-136 U/L Troponin I < 0.028 <0.028 NG/ML B-Type Natriuretic Peptide < 10.0 <100.0 PG/ML Total Protein 7.7 6.4-8.2 GM/DL Albumin 4.2 3.2-4.5 GM/DL My Orders Orders - MAMADOU SALDAÑA MD Cbc With Automated Diff (11/01/22 07:57) Magnesium (11/01/22 07:57) Ekg Tracing (11/01/22 07:57) Comprehensive Metabolic Panel (11/01/22 07:57) Protime With Inr (11/01/22 07:57) Partial Thromboplastin Time (11/01/22 07:57) O2 (11/01/22 07:57) Monitor-Rhythm Ecg Trace Only (11/01/22 07:57) Ed Iv/Invasive Line Start (11/01/22 07:57) Bnp [place] (11/01/22 07:57) Fibrin Degradation Products (11/01/22 07:57) Troponin I [place] (11/01/22 07:57) Enoxaparin Injection (Lovenox Injection) (11/01/22 08:00) Us Venous Upper Ext Rt (11/01/22 07:58) Chest 1 View, Ap/Pa Only (11/01/22 08:00) Medications Given in ED Current Medications Medications Dose Ordered Sig/Gabrielle Route Start Time Stop Time Status Last Admin Dose Admin Enoxaparin Sodium 110 mg ONCE ONCE SC 11/01/22 08:00 11/01/22 08:01 DC 11/01/22 08:17 110 MG Vital Signs/I&O 11/01/22 07:45 Temp 36.2 Pulse 121 Resp 20 B/P (MAP) 150/127 (135) Pulse Ox 100 O2 Delivery Room Air Progress Progress Note : Progress Note 42-year-old female with above history coming in due to right upper extremity swelling and color change. ABCs were intact and vitals were stable on presenta tion. Physical exam with a blue hue to her right arm with slightly larger appearance compared to the left. She has palpable radial pulse and Doppler pulses of her radial artery and ulnar artery on the right. Chest x-ray negative for acute findings, specifically no cervical rib seen. Ultrasound with DVT in the right upper extremity extending through the subclavian. I called and discussed the case with the radiologist on-call in [place], and she does have flow through the subclavian, does not appear to go much more proximal to that. He states that is very unlikely that these progressed to PEs. Patient was given 1 mg/kg of Lovenox while awaiting her ultrasound results. On reassessment, color is better, pain is better, neurovascularly intact still. Now that she has been inside for some time and is warmer, hand does feel warmer, and feels similar temperature still to her normal extremity on the left. Patient likely does have some type of hematologic issue such as factor V as a reason for the blood clot given no other instigating factor. I will have her follow-up with her PCP for work-up regarding this. Clinically she does not show any signs of a PE at this time, and even if she had a PE, it would be small and insignificant clinically, so would still go home on anticoagulation. She is insured and is able to afford a course of Eliquis. I will have her follow-up with her PCP as a n outpatient. She was discharged home in stable condition with strict return precautions Initial ECG Impression Date: Nov 01, 2022 Initial ECG Impression Time: 08:20 Initial ECG Rate: 77 Initial ECG Rhythm: Normal Sinus Comment Narrow QRS, normal axis, no significant ST changes Diagnostic Imaging Diagonstic Imaging: Xray (chest), Ultrasound (right upper extremity) Comments [facility]. [place], [place] NAME: VERO ESCOBEDO [facility] REC#: [id number] PT STATUS: REG ER : 1980 PHYSICIAN: MAMADOU SALDAÑA MD ADMIT DATE: 11/01/22/ER Draft Date of Exam:11/01/22 CHEST 1 VIEW, AP/PA ONLY INDICATION: Chest pain COMPARISON: 12/26/2021 TECHNIQUE: Single radiograph of the chest dated 11/01/2022. FINDINGS: The cardiac silhouette is within normal limits in size. No significant pulmonary vascular congestion. The lungs are clear. No pleural effusion. No pneumothorax. No acute osseous abnormality. IMPRESSION: No acute cardiopulmonary abnormality. Dictated on workstation # [id number] Dict: 11/01/22925 Trans: 11/01/22928 [facility] [id number] Interpreted by: DEXTER LANGFORD MD Electronically signed by: Departure Impression Primary Impression: DVT (deep venous thrombosis) Qualified Codes: I82.A11 - Acute embolism and thrombosis of right axillary vein Disposition: 01 HOME, SELF-CARE Condition: Stable Departure-Patient Inst. Decision time for Depature: 10:48 Referrals: ROGER MENDOZA MD (PCP/Family) Primary Care Physician Patient Instructions: Deep Vein Thrombosis (DVT) ED Add. Discharge Instructions: You have significant blood clot in her right arm. If you develop severe shortness of breath, severe chest pain, your arm pain becomes very severe that is unable to be controlled with the hydrocodone or Tylenol, I would want you to be reevaluated in the ER. Otherwise you will start a blood thinner that you will take twice a day. Follow-up with your regular doctor in the next 1 to 2 weeks as you will need a work-up to figure out why you had a blood clot in your arm. Scripts Hydrocodone Bit/Acetaminophen (HYDROcodone/APAP 5 MG/325 MG TAB) 1 Tab Tab 1 TAB PO Q6H for Pain for 3 Days, #12 TAB 0 Refills Prov: MAMADOU SALDAÑA MD 11/01/22 Apixaban (Eliquis) 5 Mg Tablet 5 MG PO BID for 30 Days, #74 TAB TAKE 2 TABLETS BID X 7 DAYS, THEN 1 TABLET BID Prov: MAMADOU SALDAÑA MD 11/01/22 Work/School Note: Work Release Form Date Seen in the Emergency Department: Nov 01, 2022 Return to Work: Nov 03, 2022 Restrictions: No Restrictions MAMADOU SALDAÑA MD Nov 01, 2022 08:06
[2022-11-01 08:25] LABS: BASOPHILS % (AUTO) 0 % (0-10); EOSINOPHILS # (AUTO) 0.1 10^3/uL (0.0-0.3); EOSINOPHILS % (AUTO) 2 % (0-10); HEMATOCRIT 42 % (35-52); LYMPHOCYTES # (AUTO) 2.3 10^3/uL (1.0-4.0); LYMPHOCYTES % (AUTO) 33 % (12-44); MEAN CORPUSCULAR HEMOGLOBIN 30 pg (25-34); MEAN CORPUSCULAR HGB CONC 34 g/dL (32-36); MEAN CORPUSCULAR VOLUME 88 fL (80-99); MEAN PLATELET VOLUME 9.6 fL (9.0-12.2); MONOCYTES # (AUTO) 0.4 10^3/uL (0.0-1.0); MONOCYTES % (AUTO) 6 % (0-12); NEUTROPHILS # (AUTO) 4.1 10^3/uL (1.8-7.8); NEUTROPHILS % (AUTO) 59 % (42-75); PLATELET COUNT 271 10^3/uL (130-400)
[2022-11-01 08:40] LABS: INR 0.8 (0.8-1.4); PROTHROMBIN TIME PATIENT 11.9 SEC (12.2-14.7)
[2022-11-01 08:50] LABS: ALBUMIN 4.2 GM/DL (3.2-4.5); BILIRUBIN,TOTAL 0.4 MG/DL (0.1-1.0); CALCIUM 9.3 MG/DL (8.5-10.1); CREATININE SERUM 0.97 MG/DL (0.60-1.30); POTASSIUM 3.8 MMOL/L (3.6-5.0); TOTAL PROTEIN 7.7 GM/DL (6.4-8.2)
--- NOTE | 2022-11-01 09:30 | Diagnostic Imaging Report ---
INDICATION: Chest pain COMPARISON: 12/26/2021 TECHNIQUE: Single radiograph of the chest dated 11/01/2022. FINDINGS: The cardiac silhouette is within normal limits in size. No significant pulmonary vascular congestion. The lungs are clear. No pleural effusion. No pneumothorax. No acute osseous abnormality. IMPRESSION: No acute cardiopulmonary abnormality. Dictated by: Dictated on workstation # [id number]
[2022-11-01] MEDS ORDERED: ACHD5005 PO (10:49)
[2022-11-01] MEDS ORDERED: APIX5TAB PO (10:49)
--- NOTE | 2022-11-01 11:07 | Diagnostic Imaging Report ---
INDICATION: Right arm pain and swelling. COMPARISON: None. TECHNIQUE: The right upper extremity deep venous system was interrogated and the images were assessed for grayscale appearance, color and spectral Doppler blood flow, compression, and augmentation. FINDINGS: There is occlusive deep vein thrombosis within the right subclavian and brachial veins. The remainder of the venous structures appear patent. Soft tissues are unremarkable. IMPRESSION: 1. Occlusive deep vein thrombosis within the right subclavian and brachial veins. Critical findings were discussed with the ER physician at the time of exam by Dr. Salgado. Dictated by: Dictated on workstation # [id number]
[2022-11-01 11:08] VITALS: BP 151/96
== END 2022-11-01 11:13 | disposition home or self-care (01) ==
LOC: EDUNIT# 07:41 → ER 07:43
DX: I82.621 Acute embolism and thrombosis of deep veins of right upper extremity (principal); I82.B11 Acute embolism and thrombosis of right subclavian vein
CPT/HCPCS: 36415; 71045; 80053; 83735; 83880; 84484; 85025; 85379; 85610; 85730; 93005; 93041

== ENCOUNTER → 2023-01-27 | Outpatient (CLI) | payer BC ==
[~2023-01-27] MED LIST changes: +APIX5TAB PO
--- NOTE | 2023-01-27 14:12 | Diagnostic Imaging Report ---
INDICATION: 42-year-old female, history of occlusive thrombus right subclavian and brachial veins, follow-up. TECHNIQUE: Color and grayscale sonographic images with duplex Doppler evaluation of the upper extremity venous system. CORRELATION STUDY: 11/01/2022 FINDINGS: There is no intraluminal filling defect within the visualized portion of the internal jugular, subclavian, axillary, brachial and/or basilic veins to suggest thrombus formation. Where applicable, these vessels demonstrate normal response to compression and augmentation. There is no significant soft tissue fluid collection. IMPRESSION: 1. Negative for venous thrombus of the right upper extremity at follow-up assessment. Dictated by: Dictated on workstation # [id number]
== END ==
LOC: RAD 12:00
PROVIDERS: ATTEND Family Medicine
DX: I82.621 Acute embolism and thrombosis of deep veins of right upper extremity (principal)